=== PATIENT | male | born 1965 | race Caucasian/White ===

== ENCOUNTER 2017-04-03 20:12 | Emergency (ER) | payer MEDICAID ==
[2017-04-03] MEDS ORDERED: Sodium Chloride 0.9% 1,000 ML IV ONE (20:13)
[2017-04-03] MEDS ORDERED: Ondansetron 4 MG/2 ML SDV IVPUSH ONE (20:13)
--- NOTE | 2017-04-03 20:21 | EDM.PDOC ---
ED HPI GENERAL MEDICAL PROBLEM - General Stated Complaint: SOB Time Seen by Provider: 04/03/17 20:13 Source of Information: Reports: Patient History Limitations: Reports: No Limitations - History of Present Illness INITIAL COMMENTS - FREE TEXT/NARRATIVE: HISTORY AND PHYSICAL: History of present illness: Patient is a 51-year-old male who presents to the emergency room today with complaints of sternal chest pain and concerns of high blood pressure. Patient reports that he has been without his lisinopril for over one month as he has not been able to get to his primary care provider. He states that today he started having some midsternal chest pain after drinking several alcoholic drinks. He is concerned that this is related to not having his antihypertensive medications for "some time". He states he has been taking aspirin daily to supplement these medications. Patient had 325 of aspirin prior to arrival today Denies any shortness of breath, diaphoresis, nausea, vomiting or diarrhea. Denies any headache, change in vision, or near syncope. 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 He states that his joints hurt "all over". Denies any recent injury or trauma. Review of systems: As per history of present illness and below otherwise all systems reviewed and negative. Past medical history: As per history of present illness and as reviewed below otherwise noncontributory. Surgical history: As per history of present illness and as reviewed below otherwise noncontributory. Social history: No reported history of drug or alcohol abuse. Family history: As per history of present illness and as reviewed below otherwise noncontributory. Physical exam: Gen.: Nontoxic appearing 51-year-old male. Able to speak in full sentences without shortness of breath. Alert and oriented. HEENT: Atraumatic, normocephalic, pupils reactive, negative for conjunctival pallor or scleral icterus, mucous membranes moist, throat clear, neck supple, nontender, trachea midline. Lungs: Clear to auscultation, breath sounds equal bilaterally, chest nontender. Heart: S1S2, tachycardia, regular rate and rhythm Abdomen: Soft, nondistended, nontender. Negative for masses or hepatosplenomegaly. Negative for costovertebral tenderness. Pelvis: Stable nontender. Genitourinary: Deferred. Rectal: Deferred. Extremities: Atraumatic, negative for cords or calf pain. Neurovascular unremarkable. Neuro: Awake, alert, oriented. Cranial nerves II through XII unremarkable. Cerebellum unremarkable. Motor and sensory unremarkable throughout. Exam nonfocal. Patient states that he has had several beers prior to arrival. He did have 325mg aspirin as well. 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 He does not have any recent injury, falls or trauma. He states he has not seen his primary care provider in several months. When further investigating his joint pain he is very nonspecific and unable to state what actually hurts. He does say that he does get arthritic pain which this does feel similar. At this time I do not feel we need any x-rays related to this concern. I did inform him that he needs to follow-up with the primary care provider not only for his blood pressure management and concerned that he needs antihypertensive medications but also for his arthritic pain. Patient voices understanding, although hesitant. Patient removed his IV and the leads further surveillance monitor. Patient is up ambulating in the hallway, gait is steady and patient is alert and oriented. Patient's labs, x-ray and EKG were discussed with the patient. He states that his chest pain has resolved but still has body aches. Patient was offered admission at this time, he declined. Risks vs benefits were reviewed in detail. He states he would like a shot of "morphine"for pain and be discharged to home. Did state I would give him an injection of Toradol and give him discharge instructions. Informed patient to stop taking or than the recommended amount of aspirin. Informed him he needed to follow-up with his primary care provider for his concerns of his blood pressure. Today's readings were all within normal limits and do not require any antihypertensive medications. Patient voices understanding and is agreeable to plan of care. Denies any further questions at this time. Diagnostics: CBC, CMP, troponin, EKG, chest x-ray Therapeutics: Aspirin Nitroglycerin Impression: Chest pain, non-specific Arthritis Plan: 1. You have been offered admission to the hospital at this time, he declined. I would like you to follow-up with your primary care provider in the next 1-2 days for reevaluation. At that time he may also address her concerns of your high blood pressure. 2. Stop drinking alcohol 3. Stop taking more that the recommended amounts of NSAIDS (Aspiring, Ibuprofen , Aleve) as this can cause GI upset and bleeding. 4. Return to the ED as needed and as discussed Definitive disposition and diagnosis as appropriate pending reevaluation and review of above. Onset: Today Duration: Hour(s): Location: Reports: Chest chest pain Pain Score (Numeric/FACES): 4 - Related Data Allergies Allergy/AdvReac Type Severity Reaction Status Date / Time Penicillins Allergy Other Verified 04/03/17 21:03 Home Meds: Home Meds Lisinopril 40 mg PO DAILY 10/27/15 [History] Folic Acid 1 mg PO BEDTIME tablet 10/28/15 [Rx] LORazepam [Ativan] 1 mg IVPUSH Q2H PRN #2 vial 10/28/15 [Rx] Multivitamins,Therapeutic [Thera] 1 each PO BEDTIME tablet 10/28/15 [Rx] Nicotine [Habitrol] 21 mg TRDERM DAILY patch 10/28/15 [Rx] Thiamine [Vitamin B-1] 100 mg PO BEDTIME tablet 10/28/15 [Rx] cloNIDine [Catapres] 0.1 mg PO Q8H PRN #0 tablet 10/28/15 [Rx] Past Medical History HEENT History: Reports: Allergic Rhinitis Cardiovascular History: Reports: Hypertension Psychiatric History: Reports: Addiction, Depression, Suicidal Ideation - Past Surgical History Musculoskeletal Surgical History: Reports: Other (See Below) Social & Family History - Family History Cardiac: Reports: Other (See Below) Other Cardiac Family History: valve replacement Oncologic: Reports: Esophageal, Lung, Renal - Tobacco Use Smoking Status *Q: Light Tobacco Smoker Years of Tobacco use: 30 Packs/Tins Daily: 1 - Alcohol Use Days Per Week of Alcohol Use: 7 Number of Drinks Per Day: 10 Total Drinks Per Week: 70 - Recreational Drug Use Recreational Drug Use: Yes Recreational Drug Type: Reports: Amphetamines (Speed), Marijuana/Hashish ED ROS GENERAL - Review of Systems Review Of Systems: ROS reveals no pertinent complaints other than HPI. ED EXAM, GENERAL - Physical Exam Exam: See Below (See dictation) Course - Vital Signs Last Recorded V/S: Last Vital Signs Temp 36.3 C 04/03/17 20:15 Pulse 114 H 04/03/17 20:15 Resp 18 04/03/17 20:15 BP 138/93 H 04/03/17 20:15 Pulse Ox 98 04/03/17 20:15 - Orders/Labs/Meds Orders: Active Orders 24 hr Category Date Time Status EKG Documentation Completion [RC] STAT Care 04/03/17 20:13 Active Chest 1V Frontal [CR] Stat Exams 04/03/17 20:13 Taken Labs: Laboratory Tests 04/03/17 04/03/17 Range/Units 20:15 20:15 WBC 7.21 (4.0-11.0) K/uL RBC 4.79 (4.50-5.90) M/uL Hgb 15.1 (13.0-17.0) g/dL Hct 43.0 (38.0-50.0) % MCV 89.8 (80.0-98.0) fL MCH 31.5 (27.0-32.0) pg MCHC 35.1 (31.0-37.0) g/dL RDW Std Deviation 44.8 (28.0-62.0) fl RDW Coeff of Sanchez 14 (11.0-15.0) % Plt Count 180 (150-400) K/uL MPV 11.10 (7.40-12.00) fL Neut % (Auto) 42.1 L (48.0-80.0) % Lymph % (Auto) 43.7 H (16.0-40.0) % Upton % (Auto) 11.0 (0.0-15.0) % Eos % (Auto) 2.6 (0.0-7.0) % Baso % (Auto) 0.6 (0.0-1.5) % Neut # (Auto) 3.0 (1.4-5.7) K/uL Lymph # (Auto) 3.2 H (0.6-2.4) K/uL Upton # (Auto) 0.8 (0.0-0.8) K/uL Eos # (Auto) 0.2 (0.0-0.7) K/uL Baso # (Auto) 0.0 (0.0-0.1) K/uL Nucleated RBC % 0.0 /100WBC Nucleated RBCs # 0 K/uL Sodium 146 (136-146) mmol/L Potassium 4.3 (3.5-5.1) mmol/L Chloride 106 (98-110) mmol/L Carbon Dioxide 28 (21-31) mmol/L BUN 11 (6.0-23.0) mg/dL Creatinine 0.8 (0.6-1.5) mg/dL Est Cr Clr Drug Dosing 131.10 mL/min Estimated GFR (MDRD) > 60.0 ml/min Glucose 111 H (60-110) mg/dL Calcium 9.1 (8.8-10.8) mg/dL Total Bilirubin 0.5 (0.1-1.5) mg/dL AST 34 (5-40) IU/L ALT 19 (8-54) IU/L Alkaline Phosphatase 123 (40-150) Troponin I < 0.10 (0.0-0.29) NG/ML Total Protein 7.6 (6.0-8.0) g/dL Albumin 3.8 (3.5-5.0) g/dL Globulin 3.8 H (2.0-3.5) g/dL Albumin/Globulin Ratio 1.0 L (1.3-2.8) Meds: Medications Discontinued Medications Generic Name Dose Route Start Last Admin Trade Name Freq PRN Reason Stop Dose Admin Sodium Chloride 1,000 mls @ 999 mls/hr 04/03/17 20:13 04/03/17 20:36 Normal Saline IV 04/03/17 21:13 999 mls/hr STAT ONE Administration Ketorolac Tromethamine 30 mg 04/03/17 20:55 Toradol IVPUSH 04/03/17 20:56 ONETIME ONE Ketorolac Tromethamine 60 mg 04/03/17 21:17 Toradol IM 04/03/17 21:18 ONETIME ONE Ondansetron HCl 4 mg 04/03/17 20:13 04/03/17 20:36 Zofran IVPUSH 04/03/17 20:14 4 mg ONETIME ONE Administration Departure - Departure Time of Disposition: 21:24 Disposition: Home, Self-Care 01 Clinical Impression: Nonspecific chest pain, Arthritis Referrals: PCP,None [Primary Care Provider] - Additional Instructions: My general discharge The following information is given to patients seen in the emergency department who are being discharged to home. This information is to outline your options for follow-up care. We provide all patients seen in our emergency department with a follow-up referral. The need for follow-up, as well as the timing and circumstances, are variable depending upon the specifics of your emergency department visit. If you don't have a primary care physician on staff, we will provide you with a referral. We always advise you to contact your personal physician following an emergency department visit to inform them of the circumstance of the visit and for follow-up with them and/or the need for any referrals to a consulting specialist. The emergency department will also refer you to a specialist when appropriate. This referral assures that you have the opportunity for follow-up care with a specialist. All of these measure are taken in an effort to provide you with optimal care, which includes your follow-up. Under all circumstances we always encourage you to contact your private physician who remains a resource for coordinating your care. When calling for follow-up care, please make the office aware that this follow-up is from your recent emergency room visit. If for any reason you are refused follow-up, please contact the [facility] Emergency Department at and asked to speak to the emergency department charge nurse. [facility] [address] [place] [address] 1. You have been offered admission to the hospital at this time, he declined. I would like you to follow-up with your primary care provider in the next 1-2 days for reevaluation. At that time he may also address her concerns of your high blood pressure. 2. Stop drinking alcohol 3. Stop taking more that the recommended amounts of NSAIDS (Aspiring, Ibuprofen , Aleve) as this can cause GI upset and bleeding. 4. Return to the ED as needed and as discussed - My Orders Last 24 Hours: My Active Orders 04/03/17 20:13 EKG Documentation Completion [RC] STAT Chest 1V Frontal [CR] Stat - Assessment/Plan Last 24 Hours: My Active Orders 04/03/17 20:13 EKG Documentation Completion [RC] STAT Chest 1V Frontal [CR] Stat
[2017-04-03] MEDS ORDERED: Ketorolac 30 MG/ML SDV IVPUSH ONE (20:55)
[2017-04-03 21:10] VITALS: BP 138/93
[2017-04-03 21:16] LABS: CHLORIDE,CL 106 mmol/L (98-110); SODIUM,NA 146 mmol/L (136-146)
[2017-04-03] MEDS ORDERED: Ketorolac 60 MG/2 ML SDV IM ONE (21:17)
--- NOTE | 2017-04-04 10:42 | CR ---
EXAM DATE: 04/03/17 PATIENT'S AGE: 51 Patient: NARA LARA Facility: [place], [place] Site . Site : 1965 Study: XRay Chest [id number]/[id number] 9:04:27 PM Ordering Physician: Doctor Lin Final Report: INDICATION: chest pain TECHNIQUE: Chest 1 view COMPARISON: None FINDINGS: Cardiovascular and mediastinum: Heart size and vasculature are normal in caliber and appearance. Mediastinum is within normal limits. Lungs and pleural space: No focal consolidation. No sign of pleural effusion. No pneumothorax. Bones: Remote healed 5th posterior left rib fracture. IMPRESSION: No acute cardiopulmonary disease. Dictated by Ricardo Ibarra MD @ 04/03/2017 9:16:37 PM Dictated by: Ricardo Ibarra MD @ 04/03/2017 21:16:52 (Electronic Signature) Report Signed by Proxy. [facility]
== END 2017-04-03 21:45 | disposition home or self-care (01) ==
LOC: MW.ED 20:12
DX: R07.9 Chest pain, unspecified (principal); I10 Essential (primary) hypertension; F32.9 Major depressive disorder, single episode, unspecified; M15.0 Primary generalized (osteo)arthritis
CPT/HCPCS: 36415; 71010; 80053; 84484; 85025; 93005; 96372; 96374; 99285; J1885; J2405; J7040; 99284

== ENCOUNTER 2017-04-05 00:24 | Emergency (ER) | payer MEDICAID ==
--- NOTE | 2017-04-05 00:42 | EDM.PDOC ---
ED HPI GENERAL MEDICAL PROBLEM - General Chief Complaint: Chest Pain Stated Complaint: OVERDOSE /INTOXICATED/CHEST PAIN Time Seen by Provider: 04/05/17 00:39 - History of Present Illness INITIAL COMMENTS - FREE TEXT/NARRATIVE: HISTORY AND PHYSICAL: History of present illness: Patient is 51-year-old white male presents with a concern of chest pain he was seen yesterday for same this is vaguely described without associated shortness breath palpitations nausea vomiting or diaphoresis Review of systems: As per history of present illness and below otherwise all systems reviewed and negative. Past medical history: As per history of present illness and as reviewed below otherwise noncontributory. Surgical history: As per history of present illness and as reviewed below otherwise noncontributory. Social history: No reported history of drug or alcohol abuse. Family history: As per history of present illness and as reviewed below otherwise noncontributory. Physical exam: HEENT: Atraumatic, normocephalic, pupils reactive, negative for conjunctival pallor or scleral icterus, mucous membranes moist, throat clear, neck supple, nontender, trachea midline. Lungs: Clear to auscultation, breath sounds equal bilaterally, chest nontender. Heart: S1S2, regular, negative for clicks, rubs, or JVD. Abdomen: Soft, nondistended, nontender. Negative for masses or hepatosplenomegaly. Negative for costovertebral tenderness. Pelvis: Stable nontender. Genitourinary: Deferred. Rectal: Deferred. Extremities: Atraumatic, negative for cords or calf pain. Neurovascular unremarkable. Neuro: Awake, alert, oriented. Cranial nerves II through XII unremarkable. Cerebellum unremarkable. Motor and sensory unremarkable throughout. Exam nonfocal. Diagnostics: CBC CMP troponin PT/INR chest x-ray EKG Therapeutics: None Impression: #1 atypical chest pain #2 history of ethanol abuse Definitive disposition and diagnosis as appropriate pending reevaluation and review of above. - Related Data Allergies Allergy/AdvReac Type Severity Reaction Status Date / Time Penicillins Allergy Other Verified 04/05/17 00:35 Home Meds: Home Meds Lisinopril 40 mg PO DAILY 10/27/15 [History] Folic Acid 1 mg PO BEDTIME tablet 10/28/15 [Rx] LORazepam [Ativan] 1 mg IVPUSH Q2H PRN #2 vial 05/20/16 [Rx] Multivitamins,Therapeutic [Thera] 1 each PO BEDTIME tablet 10/28/15 [Rx] Nicotine [Habitrol] 21 mg TRDERM DAILY patch 10/28/15 [Rx] Thiamine [Vitamin B-1] 100 mg PO BEDTIME tablet 10/28/15 [Rx] cloNIDine [Catapres] 0.1 mg PO Q8H PRN #0 tablet 10/28/15 [Rx] Past Medical History HEENT History: Reports: Allergic Rhinitis Cardiovascular History: Reports: Hypertension Respiratory History: Reports: None Gastrointestinal History: Reports: None Genitourinary History: Reports: None Musculoskeletal History: Reports: None Neurological History: Reports: None Psychiatric History: Reports: Addiction, Depression, Suicidal Ideation Endocrine/Metabolic History: Reports: None Hematologic History: Reports: None Immunologic History: Reports: None Oncologic (Cancer) History: Reports: None Dermatologic History: Reports: None - Infectious Disease History Infectious Disease History: Reports: None - Past Surgical History Musculoskeletal Surgical History: Reports: Other (See Below) Social & Family History - Family History Family Medical History: Noncontributory Cardiac: Reports: Other (See Below) Other Cardiac Family History: valve replacement Oncologic: Reports: Esophageal, Lung, Renal - Tobacco Use Smoking Status *Q: Light Tobacco Smoker Years of Tobacco use: 30 Packs/Tins Daily: 1 - Caffeine Use Caffeine Use: Reports: Coffee - Alcohol Use Days Per Week of Alcohol Use: 7 Number of Drinks Per Day: 10 Total Drinks Per Week: 70 - Recreational Drug Use Recreational Drug Use: Yes Recreational Drug Type: Reports: Amphetamines (Speed), Marijuana/Hashish ED ROS GENERAL - Review of Systems Review Of Systems: ROS reveals no pertinent complaints other than HPI. ED EXAM, GENERAL - Physical Exam Exam: See Below (See dictation) Course - Orders/Labs/Meds Orders: Active Orders 24 hr Category Date Time Status EKG 12 Lead [EKG Documentation Completion] [RC] STAT Care 04/05/17 00:34 Active Chest 1V Frontal [CR] Stat Exams 04/05/17 00:34 Ordered CBC WITH AUTO DIFF [HEME] Stat Lab 04/05/17 00:34 Ordered CKMB [CHEM] Stat Lab 04/05/17 00:34 Ordered COMPREHENSIVE METABOLIC PN,CMP [CHEM] Stat Lab 04/05/17 00:34 Ordered TROPONIN I [CHEM] Stat Lab 04/05/17 00:34 Ordered Departure - Departure Time of Disposition: 00:40 Disposition: Home, Self-Care 01 Condition: Good Clinical Impression: Atypical chest pain - Discharge Information Referrals: PCP,None [Primary Care Provider] - Additional Instructions: The following information is given to patients seen in the emergency department who are being discharged to home. This information is to outline your options for follow-up care. We provide all patients seen in our emergency department with a follow-up referral. The need for follow-up, as well as the timing and circumstances, are variable depending upon the specifics of your emergency department visit. If you don't have a primary care physician on staff, we will provide you with a referral. We always advise you to contact your personal physician following an emergency department visit to inform them of the circumstance of the visit and for follow-up with them and/or the need for any referrals to a consulting specialist. The emergency department will also refer you to a specialist when appropriate. This referral assures that you have the opportunity for followup care with a specialist. All of these measure are taken in an effort to provide you with optimal care, which includes your followup. Under all circumstances we always encourage you to contact your private physician who remains a resource for coordinating your care. When calling for followup care, please make the office aware that this follow-up is from your recent emergency room visit. If for any reason you are refused follow-up, please contact the [facility] emergency department at and asked to speak to the emergency department charge nurse. [facility] [address] [place] [id number] Follow-up primary medical doctor/clinic above 1-2 days return as needed as discussed - My Orders Last 24 Hours: My Active Orders 04/05/17 00:34 EKG 12 Lead [EKG Documentation Completion] [RC] STAT Chest 1V Frontal [CR] Stat CBC WITH AUTO DIFF [HEME] Stat CKMB [CHEM] Stat COMPREHENSIVE METABOLIC PN,CMP [CHEM] Stat TROPONIN I [CHEM] Stat - Assessment/Plan Last 24 Hours: My Active Orders 04/05/17 00:34 EKG 12 Lead [EKG Documentation Completion] [RC] STAT Chest 1V Frontal [CR] Stat CBC WITH AUTO DIFF [HEME] Stat CKMB [CHEM] Stat COMPREHENSIVE METABOLIC PN,CMP [CHEM] Stat TROPONIN I [CHEM] Stat
[2017-04-05 01:06] LABS: CHLORIDE,CL 106 mmol/L (98-110); SODIUM,NA 141 mmol/L (136-146)
[2017-04-05 01:50] VITALS: BP 117/75
--- NOTE | 2017-04-05 14:16 | CR ---
EXAM DATE: 04/05/17 PATIENT'S AGE: 51 Patient: NARA LARA Facility: [place], [place] Site . Site : 1965 Study: XRay Chest [id number]/27/2017 12:49:20 AM Ordering Physician: Doctor Lin Final Report: INDICATION: Chest pain, intoxication. TECHNIQUE: Chest radiograph 1 view COMPARISON: 04/03/2017. FINDINGS: Cardiovascular and mediastinum: The heart silhouette is normal in size and morphology. The mediastinum is normal in appearance. Lungs and pleural spaces: Both lungs are unremarkable in appearance. No sign of pleural effusion seen. No pneumothorax is identified. Bones and soft tissues: No significant findings. Old upper left rib fracture deformity. IMPRESSION: 1. No acute abnormality or interval change from 04/03/2017. Dictated by Aron Suarez MD @ 04/05/2017 12:51:52 AM Dictated by: Aron Suarez MD @ 04/05/2017 00:51:58 (Electronic Signature) Report Signed by Proxy. [facility]
== END 2017-04-05 01:40 | disposition home or self-care (01) ==
LOC: MW.ED 00:24
DX: R07.89 Other chest pain (principal); F10.10 Alcohol abuse, uncomplicated; I10 Essential (primary) hypertension; F17.210 Nicotine dependence, cigarettes, uncomplicated; Z88.0 Allergy status to penicillin; Z79.899 Other long term (current) drug therapy
CPT/HCPCS: 36415; 71010; 71010-26; 80053; 82553; 84484; 85025; 93005; 99281; 99285-25

== ENCOUNTER 2017-04-10 00:25 | Emergency (ER) | payer MEDICAID ==
[2017-04-10] MEDS ORDERED: MVI, Adult with Vitamin K 10 ML, Thiamine 100 MG, Folic Acid 1 MG in Sodium Chloride 0.... IV ONE ×4 (00:47)
--- NOTE | 2017-04-10 00:58 | EDM.PDOC ---
ED HPI GENERAL MEDICAL PROBLEM - General Chief Complaint: Drug or Alcohol Abuse Stated Complaint: AMBULANCE Time Seen by Provider: 04/10/17 00:40 Source of Information: Reports: Patient, Police, RN - History of Present Illness INITIAL COMMENTS - FREE TEXT/NARRATIVE: He is bought by police. His mother called police because she was worried about him. He had some relationship problems and has been drinking heavy. He said that he had a "huge bottle" of vodka today. vomited this am no bleeding He says " I hurt everywhere" He said that he wants to but has no active plans. no fever no reported trauma Chest Pain Score (Numeric/FACES): 3 Abdominal Pain Score (Numeric/FACES): 2 - Related Data Allergies Allergy/AdvReac Type Severity Reaction Status Date / Time Penicillins Allergy Other Verified 04/10/17 00:30 Home Meds: Home Meds Lisinopril 40 mg PO DAILY 10/27/15 [History] Folic Acid 1 mg PO BEDTIME tablet 10/28/15 [Rx] LORazepam [Ativan] 1 mg IVPUSH Q2H PRN #2 vial 10/28/15 [Rx] Multivitamins,Therapeutic [Thera] 1 each PO BEDTIME tablet 10/28/15 [Rx] Nicotine [Habitrol] 21 mg TRDERM DAILY patch 10/28/15 [Rx] Thiamine [Vitamin B-1] 100 mg PO BEDTIME tablet 10/28/15 [Rx] cloNIDine [Catapres] 0.1 mg PO Q8H PRN #0 tablet 10/28/15 [Rx] Past Medical History - Past Health History Medical/Surgical History: Denies Medical/Surgical History HEENT History: Reports: Allergic Rhinitis Cardiovascular History: Reports: Hypertension Respiratory History: Reports: None Gastrointestinal History: Reports: None Genitourinary History: Reports: None Musculoskeletal History: Reports: None Neurological History: Reports: None Psychiatric History: Reports: Addiction, Depression, Suicidal Ideation Endocrine/Metabolic History: Reports: None Hematologic History: Reports: None Immunologic History: Reports: None Oncologic (Cancer) History: Reports: None Dermatologic History: Reports: None - Infectious Disease History Infectious Disease History: Reports: None - Past Surgical History Musculoskeletal Surgical History: Reports: Other (See Below) Social & Family History - Family History Family Medical History: Noncontributory Cardiac: Reports: Other (See Below) Other Cardiac Family History: valve replacement Oncologic: Reports: Esophageal, Lung, Renal - Tobacco Use Smoking Status *Q: Unknown Ever Smoked Years of Tobacco use: 30 Packs/Tins Daily: 1 Tobacco Use Comment: chew tobacco - Caffeine Use Caffeine Use: Reports: Coffee - Alcohol Use Days Per Week of Alcohol Use: 7 Number of Drinks Per Day: 10 Total Drinks Per Week: 70 - Recreational Drug Use Recreational Drug Use: Yes Recreational Drug Type: Reports: Amphetamines (Speed), Marijuana/Hashish ED ROS GENERAL - Review of Systems Review Of Systems: See Below Constitutional: Denies: Fever - Physical Exam Exam: See Below Text/Narrative:: alert talkative cooperative lungs CTA abdomen non tender no head trauma neck supple normal speech no facial droop no tremor Course - Vital Signs Last Recorded V/S: Last Vital Signs Temp 97.7 F 04/10/17 00:30 Pulse 120 H 04/10/17 00:30 Resp 20 04/10/17 00:30 BP 139/85 04/10/17 00:30 Pulse Ox 97 04/10/17 00:30 - Orders/Labs/Meds Orders: Active Orders 24 hr Category Date Time Status EKG 12 Lead [EKG Documentation Completion] [RC] STAT Care 04/10/17 00:40 Active Blood Alcohol [ETHANOL BLOOD MEDICAL] [CHEM] Stat Lab 04/10/17 00:48 Ordered CBC WITH AUTO DIFF [HEME] Stat Lab 04/10/17 00:47 Ordered COMPREHENSIVE METABOLIC PN,CMP [CHEM] Stat Lab 04/10/17 00:47 Ordered MAGNESIUM [CHEM] Stat Lab 04/10/17 00:47 Ordered MVI, Adult with Vitamin K [Infuvite Adult] 10 ml Med 04/10/17 00:47 Ordered Thiamine [Vitamin B-1] 100 mg Folic Acid 1 mg Sodium Chloride 0.9% [Normal Saline] 1,000 ml IV ONETIME Medication Orders Multivitamins/Minerals 10 ml/Thiamine HCl 100 mg/ Folic Acid 1 mg/ Sodium Chloride 1,011.2 mls @ 250 mls/hr IV ONETIME ONE Stop: 04/10/17 04:49 Meds: Medications Generic Name Dose Route Start Last Admin Trade Name Freq PRN Reason Stop Dose Admin Multivitamins/Minerals 10 ml/ 1,011.2 mls @ 250 mls/hr 04/10/17 00:47 Thiamine HCl 100 mg/ Folic IV 04/10/17 04:49 Acid 1 mg/ Sodium Chloride ONETIME ONE - Re-Assessments/Exams Free Text/Narrative Re-Assessment/Exam: 04/10/17 00:58 I spoke with Frida Luis who agrees to take patient in transfer Aron Woody MD Departure - Departure Time of Disposition: 00:59 Disposition: DC/Tfer to Acute Hospital 02 Condition: Fair Clinical Impression: Alcoholism - Discharge Information Forms: ED Department Discharge - My Orders Last 24 Hours: My Active Orders 04/10/17 00:40 EKG 12 Lead [EKG Documentation Completion] [RC] STAT 04/10/17 00:47 CBC WITH AUTO DIFF [HEME] Stat COMPREHENSIVE METABOLIC PN,CMP [CHEM] Stat MAGNESIUM [CHEM] Stat MVI, Adult with Vitamin K [Infuvite Adult] 10 ml Thiamine [Vitamin B-1] 100 mg Folic Acid 1 mg Sodium Chloride 0.9% [Normal Saline] 1,000 ml IV ONETIME 04/10/17 00:48 Blood Alcohol [ETHANOL BLOOD MEDICAL] [CHEM] Stat - Assessment/Plan Last 24 Hours: My Active Orders 04/10/17 00:40 EKG 12 Lead [EKG Documentation Completion] [RC] STAT 04/10/17 00:47 CBC WITH AUTO DIFF [HEME] Stat COMPREHENSIVE METABOLIC PN,CMP [CHEM] Stat MAGNESIUM [CHEM] Stat MVI, Adult with Vitamin K [Infuvite Adult] 10 ml Thiamine [Vitamin B-1] 100 mg Folic Acid 1 mg Sodium Chloride 0.9% [Normal Saline] 1,000 ml IV ONETIME 04/10/17 00:48 Blood Alcohol [ETHANOL BLOOD MEDICAL] [CHEM] Stat
[2017-04-10 01:34] LABS: CHLORIDE,CL 100 mmol/L (98-110); SODIUM,NA 138 mmol/L (136-146)
[2017-04-10] MEDS ORDERED: LORazepam 2 MG/ML SDV IVPUSH ONE (01:52)
[2017-04-10] MEDS ORDERED: Ondansetron 4 MG/2 ML SDV IVPUSH ONE (01:52)
[2017-04-10 02:56] VITALS: BP 127/83
== END 2017-04-10 02:20 ==
LOC: MW.ED 00:25
DX: F10.20 Alcohol dependence, uncomplicated (principal); I10 Essential (primary) hypertension; F32.9 Major depressive disorder, single episode, unspecified; Z79.899 Other long term (current) drug therapy; Z88.0 Allergy status to penicillin
CPT/HCPCS: 36415; 80053; 83735; 85025; 93005; 96365; 96375; 99285; G0480; J2060; J2405; J3411; J7040; 99284